=== PATIENT | male | born 1985 | race Caucasian/White ===

== ENCOUNTER 2025-06-17 10:31 | Inpatient (IN) | payer SELFPAY ==
[2025-06-17] VITALS (32 sets, daily range): BP systolic 110–146; BP diastolic 58–122; PULSE 69–151; RESP 15–31; TEMP 36.4–37.0852; O2SAT 95–100
[~2025-06-17] VITALS: Ht 172.7 cm; Wt 74.4 kg
[2025-06-17] MEDS ORDERED: LORAZEPAM 2MG/ML UD SYRINGE IV NR (10:45)
[2025-06-17] MEDS ORDERED: LACTATED RINGERS 1,000 ML IV SCH (11:00)
[2025-06-17] MEDS: LORAZEPAM 2MG/ML UD SYRINGE IV NR (11:05)
[2025-06-17] MEDS: LORAZEPAM 2MG/ML UD SYRINGE ONE (11:05)
[2025-06-17] MEDS: LEVETIRACETAM 500MG PREMIX 100 ML IV ONE ×2 (11:05→11:06)
[2025-06-17] MEDS: PROPOFOL 10MG/ML 100ML 100 ML IV SCH (11:10)
[2025-06-17 11:21] LABS: HEMATOCRIT. 42.8 % (42.0-52.0); HEMOGLOBIN. 13.9 g/dL (14.0-18.0); MEAN PLATELET VOLUME 8.2 fl (7.4-10.4); PLATELET 200 x1000/uL (130-400); RED BLOOD CELL COUNT 4.44 mill/uL (4.7-6.1); RED CELL DISTRIBUTION WIDTH 15.4 % (11.6-14.6)
[2025-06-17 11:30] LABS: CREATININE 1.2 mg/dL (0.6-1.3); UREA NITROGEN BLOOD 25 mg/dL (9-23)
[2025-06-17 11:32] LABS: ASPARTATE AMINOTRANSFERASE 93 IU/L (<34); BILIRUBIN TOTAL 0.5 mg/dL (0.1-1.0); PROTEIN TOTAL 5.9 g/dL (6.0-8.3)
[2025-06-17] MEDS: LEVETIRACETAM 3,500 MG in SODIUM CHLORIDE 0.9% 250 ML IV NR (12:12)
[2025-06-17] MEDS ORDERED: IPRATROPIUM/ALBUTEROL 0.5-3(2.5)MG/3ML NEB HHN PRN ×2 (12:45→16:15)
[2025-06-17] MEDS ORDERED: LORAZEPAM 2MG/ML UD SYRINGE IV PRN (12:45)
[2025-06-17] MEDS ORDERED: ONDANSETRON HCL 4MG/2ML INJ IV PRN (12:45)
[2025-06-17] MEDS ORDERED: CLONIDINE 0.1MG TABLET PO PRN (12:45)
[2025-06-17] MEDS ORDERED: DOCUSATE SODIUM 100MG CAPSULE PO PRN (12:45)
[2025-06-17] MEDS ORDERED: ACETAMINOPHEN 325MG TABLET PO PRN ×2 (12:45)
[2025-06-17] MEDS ORDERED: DEXTROSE 50% WATER 50ML SYRINGE IV PRN (13:00)
[2025-06-17] MEDS: BLOOD SUGAR DIAGNOSTIC STRIP TEST SCH (13:14)
[2025-06-17 13:18] LABS: BAND% 3.0 % (1.0-6.0); LYMPHOCYTES % MANUAL 20.0 % (20.0-50.0); MONOCYTES % MANUAL 13.0 % (2.0-8.0); NEUTROPHILS % MANUAL 64.0 % (45.0-75.0); NUCLEATED RED BLOOD CELLS 2 /100 WBC; PLATELET ESTIMATE NORMAL
[2025-06-17] MEDS: INSULIN LISPRO 100 UNITS/ML SUBCUT SCH (13:20)
[2025-06-17 13:21] LABS: BG BASE EXCESS 1.1 mmol/L (-2.0-3.0); BG CARBOXYHEMOGLOBIN 0.3 % (0.5-1.5); BG DEOXYHEMOGLOBIN 0.3 % (0.0-5.0); BG FRACTION INSPIRED OXYGEN 100; BG HCO3 ACT 26.0 mmol/L (21.0-28.0); BG METHEMOGLOBIN 0.1 % (0.5-1.5); BG OXYGEN SATURATION 99.7 % (94.0-98.0); BG OXYHEMOGLOBIN 99.3 % (94.0-98.0); BG PCO2 42.2 mmHg (35.0-48.0); BG PEEP (cmH2O) 5.0 cmH2O; BG PH 7.407 (7.350-7.450); BG PO2 464.6 mmHg (83.0-108.0); BG SAMPLE SITE LEFT RADIAL; BG TIDAL VOLUME(mL) 500.0 mL; BG TOTAL HEMOGLOBIN 14.0 g/dL (13.5-17.5); BG TOTAL RESPIRATORY RATE 18 b/min; BG VENT MODE VENT - AC; BG VENT RATE 16.0 set
[2025-06-17] MEDS: LACTATED RINGERS 1,000 ML IV SCH (14:15)
[2025-06-17] MEDS: LACOSAMIDE 100MG/10ML ORAL SOLN GT SCH (15:00)
[2025-06-17 17:25] LABS: CREATINE KINASE MB FRACTION 1.3 ng/mL (0.5-3.6)
[2025-06-17 17:27] LABS: PHOSPHORUS 6.2 mg/dL (2.5-4.9)
[2025-06-17] MEDS ORDERED: PROPOFOL 10MG/ML 100ML 100 ML IV PRN (17:45)
[2025-06-17] MEDS: PANTOPRAZOLE SODIUM 40 MG/VIAL IV SCH (18:22)
[2025-06-17 19:06] LABS: INR 1.0
[2025-06-17 19:44] LABS: TROPONIN I HIGH SENSITIVITY 864 ng/L (3.0-53)
[2025-06-17] MEDS: PROPOFOL 10MG/ML 100ML 100 ML IV PRN (20:27)
[2025-06-17] MEDS: IPRATROPIUM/ALBUTEROL 0.5-3(2.5)MG/3ML NEB HHN SCH (20:40)
[2025-06-17] MEDS: DEXAMETHASONE 4MG TABLET PO SCH (21:21)
[2025-06-17] MEDS: DEXAMETHASONE 4MG/ML 1ML VIAL IV SCH (22:36)
[2025-06-17 23:08] LABS: CLARITY URINE CLEAR (CLEAR); COLOR URINE YELLOW (YELLOW); GLUCOSE URINE NEGATIVE (NEGATIVE); KETONES URINE NEGATIVE (NEGATIVE); LEUKOCYTE ESTERASE URINE NEGATIVE (NEGATIVE); NITRITE URINE NEGATIVE (NEGATIVE); OCCULT BLOOD URINE NEGATIVE (NEGATIVE); PH URINE 8.5 (4.5-8.0); PROTEIN URINE NEGATIVE (NEGATIVE); SPECIFIC GRAVITY URINE 1.016 (1.005-1.030); UROBILINOGEN URINE 0.2 E.U./dL (0.2-1.0)
[2025-06-17 23:15] LABS: *AMPHETAMINES SCREEN URINE NEGATIVE (NEGATIVE); *BARBITURATES SCREEN URINE NEGATIVE (NEGATIVE); *BENZODIAZEPINES SCREEN URINE PRESUMPTIVE POSITIVE (NEGATIVE); *COCAINE SCREEN URINE NEGATIVE (NEGATIVE); CANNABINOID URINE SCREEN PRESUMPTIVE POSITIVE (NEGATIVE); ECSTASY MDMA SCREEN URINE NEGATIVE (NEGATIVE); METHADONE URINE SCREEN NEGATIVE (NEGATIVE); OPIATES URINE SCREEN NEGATIVE (NEGATIVE); PHENCYCLIDINE URINE SCREEN NEGATIVE (NEGATIVE)
[2025-06-17] MEDS ORDERED: IOHEXOL-300 100 ML BOTTLE ONE (23:33)
[2025-06-17 23:45] LABS: CREATINE KINASE MB FRACTION 5.1 ng/mL (0.5-3.6)
[2025-06-17 23:51] LABS: TROPONIN I HIGH SENSITIVITY 790 ng/L (3.0-53)
[2025-06-18] VITALS: BP 114/81; PULSE 84; RESP 16; TEMP 98
[2025-06-18] MEDS ORDERED: LEVETIRACETAM 1500MG PREMIX 100 ML IV SCH (09:00)
[2025-06-18] MEDS ORDERED: LEVETIRACETAM 1,500MG in NACL 100ML PREMIX IV SCH (09:00)
== END 2025-06-18 00:30 | disposition short-term general hospital (02) | DRG 41 ==
LOC: ER 10:31 → MICUSO 11:30 → EDBEDREQTM 11:31 → EDBEDREQ 11:31 → CANRESERV 11:54 → ENRESERV 11:54
PROVIDERS: ADMIT Internal Medicine; ATTEND Internal Medicine
PROC: 0BH17EZ Insertion of Endotracheal Airway into Trachea, Via Natural or Artificial Opening (ICD-10-PCS; principal; 2025-06-17)
PROC: 5A1935Z Respiratory Ventilation, Less than 24 Consecutive Hours (ICD-10-PCS; 2025-06-17)
DX: C71.9 Malignant neoplasm of brain, unspecified (principal); J96.01 Acute respiratory failure with hypoxia; J69.0 Pneumonitis due to inhalation of food and vomit; I61.9 Nontraumatic intracerebral hemorrhage, unspecified; G40.901 Epilepsy, unspecified, not intractable, with status epilepticus; K92.0 Hematemesis; I21.A1 Myocardial infarction type 2; D72.829 Elevated white blood cell count, unspecified; E78.5 Hyperlipidemia, unspecified; R74.01 Elevation of levels of liver transaminase levels; G47.9 Sleep disorder, unspecified; R73.9 Hyperglycemia, unspecified; G62.9 Polyneuropathy, unspecified; Z80.8 Family history of malignant neoplasm of other organs or systems
CPT/HCPCS: 31500; 31720; 36415; 36600; 70496; 70498; 71045; 76700; 80053; 80305; 81003; 82010; 82375; 82550; 82553; 82805; 82962; 83036; 83605; 83735; 84100; 84145; 84484; 85025; 86850; 86900; 94002; 94070; 94640; 94664; 96365; 96368; 96375; 99291; J1100; J1953; J2060; J2704; J7050; Q9967